=== PATIENT | female | born 1945 | race Two or more races ===

== ENCOUNTER 2019-05-08 21:26 | Emergency (ER) | payer OTHER ==
[~2019-05-08] VITALS: Ht 154.9 cm; Wt 67.1 kg
[2019-05-08] MEDS ORDERED: ZYRTEC10 M3 (21:50)
[2019-05-08] MEDS ORDERED: ATENOLOL50 MG (21:50)
== END 2019-05-09 00:07 | disposition home or self-care (01) ==
LOC: ER 21:26
DX: R42 Dizziness and giddiness (principal)

== ENCOUNTER → 2019-05-11 12:05 | Outpatient (CLI) | payer OTHER ==
[~2019-05-11 12:05] MED LIST: ATENOLOL50 MG; ZYRTEC10 M3
== END | disposition home or self-care (01) ==
LOC: LAB 12:05
DX: D64.89 Other specified anemias (principal)

== ENCOUNTER 2022-10-22 08:25 | Outpatient (CLI) | payer OTHER | END 2022-10-22 08:33 | disposition home or self-care (01) | LOC: MAMO-SONO 08:25 | PROVIDERS: ATTEND General Practice | DX: N63.13 Unspecified lump in the right breast, lower outer quadrant (principal); N63.20 Unspecified lump in the left breast, unspecified quadrant ==

== ENCOUNTER 2023-06-28 08:08 | Outpatient (CLI) | payer OTHER | END 2023-06-28 08:10 | disposition home or self-care (01) | LOC: NUCLEAR 08:08 | PROVIDERS: ATTEND General Practice | DX: I73.9 Peripheral vascular disease, unspecified (principal) ==

== ENCOUNTER → 2024-03-27 08:04 | Outpatient (CLI) | payer OTHER ==
[2024-03-27 08:43] LABS: URINE APPEARANCE Clear; URINE BILIRRUBIN Negative (NEGATIVE); URINE BLOOD Negative; URINE COLOR Yellow; URINE GLUCOSE Negative (NEGATIVE); URINE LEUKOCYTE Trace; URINE NITRATE Negative; URINE PROTEIN Negative (NEGATIVE); URINE UROBILINOGEN 0.2 E.U./dl
[2024-03-27 08:44] LABS: URINE BACTERIA 30.2 uL (0.0-1933); URINE EPITHELIAL CELLS 5.7 uL (0.0-38.8); URINE RBC 11.2 uL (0.0-20.8); URINE WBC 3.8 uL (0.0-23.2)
[2024-03-27 09:02] LABS: HEMATOCRIT 37.7 % (36.0-45.00); HEMOGLOBIN 12.6 g/dL (12.0-15.00); MEAN CELL VOLUME 82.9 fL (80.00-100.00); MEAN CORPUSCULAR HEMOGLOBIN 27.6 pg (27.00-32.0); MEAN CORPUSCULAR HGB CONC 33.3 g/dl (32.0-36.0); PLATELET COUNT 181 K/uL (150-450); RED BLOOD COUNT 4.55 M/uL (4.00-6.00); RED CELL DISTRIBUTION WIDTH 14.2 % (11.5-14.5)
[2024-03-27 10:07] LABS: ALBUMIN 3.4 gm/dL (3.4-5.0); BILIRUBIN TOTAL 0.37 mg/dL (0.3-1.2); CALCIUM 9.5 mg/dL (8.5-10.1); CHOL HDL RATIO 2.7 (0-5.0); CREATININE SERUM 0.62 mg/dL (0.55-1.02); GFR 93.09; GLOBULINA 3.8 G/DL (2.4-3.5); POTASSIUM 3.46 mEq/L (3.5-5.1); TOTAL PROTEIN 7.2 gm/dL (6.4-8.2); TSH 4.2 uIU/mL (0.358-3.74)
[2024-03-29 15:11] LABS: ob NEGATIVE (NEGATIVE)
== END | disposition home or self-care (01) ==
LOC: LAB 08:04
PROVIDERS: ATTEND General Practice
DX: E78.5 Hyperlipidemia, unspecified (principal); N39.0 Urinary tract infection, site not specified; D64.9 Anemia, unspecified; I11.9 Hypertensive heart disease without heart failure; E03.9 Hypothyroidism, unspecified; Z12.11 Encounter for screening for malignant neoplasm of colon; E55.9 Vitamin D deficiency, unspecified

== ENCOUNTER 2024-03-27 08:49 | Outpatient (CLI) | payer OTHER | END 2024-03-27 08:59 | disposition home or self-care (01) | LOC: MAMO-SONO 08:49 | PROVIDERS: ATTEND General Practice | DX: N63.13 Unspecified lump in the right breast, lower outer quadrant (principal); N63.20 Unspecified lump in the left breast, unspecified quadrant; M15.9 Polyosteoarthritis, unspecified; Z12.31 Encounter for screening mammogram for malignant neoplasm of breast ==

== ENCOUNTER 2024-08-25 09:48 | Outpatient (CLI) | payer OTHER ==
[2024-08-25 10:47] LABS: HEMATOCRIT 37.7 % (36.0-45.00); HEMOGLOBIN 12.7 g/dL (12.0-15.00); MEAN CELL VOLUME 82.8 fL (80.00-100.00); MEAN CORPUSCULAR HGB CONC 33.8 g/dl (32.0-36.0); PLATELET COUNT 184 K/uL (150-450); RED BLOOD COUNT 4.55 M/uL (4.00-6.00); RED CELL DISTRIBUTION WIDTH 13.7 % (11.5-14.5)
[2024-08-25 11:08] LABS: URINE APPEARANCE Clear; URINE BILIRRUBIN Negative (NEGATIVE); URINE BLOOD Negative; URINE COLOR Yellow; URINE GLUCOSE Negative (NEGATIVE); URINE KETONE Negative (NEGATIVE); URINE LEUKOCYTE Negative; URINE NITRATE Negative; URINE PROTEIN Negative (NEGATIVE); URINE UROBILINOGEN 0.2 E.U./dl
[2024-08-25 11:12] LABS: URINE BACTERIA 7.3 uL (0.0-1933); URINE RBC 4.5 uL (0.0-20.8)
[2024-08-25 11:14] LABS: ob NEGATIVE (NEGATIVE)
[2024-08-25 11:31] LABS: URINE WBC 0.6 uL (0.0-23.2)
[2024-08-25 11:32] LABS: URINE EPITHELIAL CELLS 0.9 uL (0.0-38.8)
[2024-08-25 11:59] LABS: ALBUMIN 3.5 gm/dL (3.4-5.0); BILIRUBIN TOTAL 0.45 mg/dL (0.3-1.2); CALCIUM 9.8 mg/dL (8.5-10.1); CHOL HDL RATIO 2.6 (0-5.0); CREATININE SERUM 0.63 mg/dL (0.55-1.02); GFR 91.39; GLOBULINA 3.9 G/DL (2.4-3.5); POTASSIUM 3.17 mEq/L (3.5-5.1); T4 FREE 0.96 NG/ML (0.76-1.46); TOTAL PROTEIN 7.4 gm/dL (6.4-8.2); TSH 3.59 uIU/mL (0.358-3.74)
== END 2024-08-25 09:52 | disposition home or self-care (01) ==
LOC: LAB 09:48
PROVIDERS: ATTEND Obstetrics & Gynecology
DX: E03.9 Hypothyroidism, unspecified (principal); I10 Essential (primary) hypertension; Z00.00 Encounter for general adult medical examination without abnormal findings; E78.9 Disorder of lipoprotein metabolism, unspecified; Z11.4 Encounter for screening for human immunodeficiency virus [HIV]; Z12.11 Encounter for screening for malignant neoplasm of colon; E55.9 Vitamin D deficiency, unspecified; Z21 Asymptomatic human immunodeficiency virus [HIV] infection status; R79.9 Abnormal finding of blood chemistry, unspecified; R79.89 Other specified abnormal findings of blood chemistry

== ENCOUNTER → 2025-02-05 11:04 | Outpatient (CLI) | payer OTHER ==
[2025-02-05 11:40] LABS: BASO % 0.2 % (0.1-1.2); EOS # 0.07 (0.04-0.54); EOS % 1.6 % (0.7-7.0); HEMATOCRIT 40.2 % (34.1-44.9); LYMPH # 1.52 (1.18-3.74); LYMPH % 34.6 % (19.3-53.1); MEAN CORPUSCULAR HEMOGLOBIN 26.9 pg (25.6-32.2); MONO # 0.52 (0.24-0.82); MONO % 11.8 % (4.7-12.5); NEUT # 2.26 (1.56-6.13); NEUT % 51.6 % (34.0-71.1); PLATELET COUNT 235 K/uL (163-369); RED BLOOD COUNT 4.83 M/uL (3.93-5.22); RED CELL DISTRIBUTION WIDTH 13.5 % (11.6-14.4)
== END | disposition home or self-care (01) ==
LOC: LAB 11:04
PROVIDERS: ATTEND Internal Medicine Gastroenterology
DX: R10.9 Unspecified abdominal pain (principal)